=== PATIENT | female | born 1940 | race Caucasian/White ===

== ENCOUNTER → 2025-02-03 | Outpatient (REF) ==
[2025-02-03 09:26] LABS: HEMATOCRIT 34.7 % (36.0-47.0); HEMOGLOBIN 11.2 g/dl (12.0-15.5); MEAN CORPUSCULAR HEMOGLOBIN 29.9 pg (27.0-33.0); MEAN CORPUSCULAR HGB CONC 32.3 g/dl (32.0-36.5); MEAN CORPUSCULAR VOLUME 92.8 fl (80.0-96.0); PLATELET COUNT, AUTOMATED 278 10^3/uL (150-450); RED BLOOD COUNT 3.74 10^6/uL (4.00-5.40); WHITE BLOOD COUNT 5.7 10^3/uL (4.0-10.0)
[2025-02-03 09:50] LABS: CALCIUM LEVEL 9.7 MG/DL (8.3-10.6); CREATININE FOR GFR 2.19 MG/DL (0.55-1.30); GLOMERULAR FILTRATION RATE 22.8 (>32); POTASSIUM SERUM 4.6 MMOL/L (3.5-5.1)
== END ==
PROVIDERS: ATTEND Internal Medicine
DX: Z02.2 Encounter for examination for admission to residential institution (principal)

== ENCOUNTER → 2025-02-05 | Outpatient (REF) ==
[2025-02-05 08:12] LABS: CREATININE FOR GFR 1.94 MG/DL (0.55-1.30); GLOMERULAR FILTRATION RATE 26.2 (>32); POTASSIUM SERUM 4.6 MMOL/L (3.5-5.1)
== END ==
PROVIDERS: ATTEND Internal Medicine
DX: N18.9 Chronic kidney disease, unspecified (principal)

== ENCOUNTER → 2025-02-08 | Outpatient (REF) ==
[2025-02-08 10:38] LABS: CALCIUM LEVEL 10.2 MG/DL (8.3-10.6); CREATININE FOR GFR 2.55 MG/DL (0.55-1.30); GLOMERULAR FILTRATION RATE 19.1 (>32); POTASSIUM SERUM 4.2 MMOL/L (3.5-5.1)
== END ==
PROVIDERS: ATTEND Internal Medicine
DX: N18.9 Chronic kidney disease, unspecified (principal)

== ENCOUNTER → 2025-02-09 | Outpatient (REF) | payer BC, MEDICARE | PROVIDERS: ATTEND Physician Assistant | DX: R05.9 Cough, unspecified (principal); R91.8 Other nonspecific abnormal finding of lung field ==

== ENCOUNTER → 2025-02-10 | Outpatient (REF) ==
[2025-02-10 08:32] LABS: HEMATOCRIT 45.3 % (36.0-47.0); MEAN CORPUSCULAR HEMOGLOBIN 30.8 pg (27.0-33.0); MEAN CORPUSCULAR HGB CONC 33.1 g/dl (32.0-36.5); PLATELET COUNT, AUTOMATED 349 10^3/uL (150-450); RED BLOOD COUNT 4.87 10^6/uL (4.00-5.40); WHITE BLOOD COUNT 12.5 10^3/uL (4.0-10.0)
[2025-02-10 09:02] LABS: CALCIUM LEVEL 10.7 MG/DL (8.3-10.6); CREATININE FOR GFR 2.67 MG/DL (0.55-1.30); GLOMERULAR FILTRATION RATE 18.1 (>32); POTASSIUM SERUM 4.6 MMOL/L (3.5-5.1)
== END ==
PROVIDERS: ATTEND Internal Medicine
DX: Z02.2 Encounter for examination for admission to residential institution (principal); Z79.899 Other long term (current) drug therapy

== ENCOUNTER → 2025-02-11 | Outpatient (REF) ==
[2025-02-11 14:10] LABS: HEMATOCRIT 47.6 % (36.0-47.0); HEMOGLOBIN 15.3 g/dl (12.0-15.5); MEAN CORPUSCULAR HEMOGLOBIN 30.8 pg (27.0-33.0); MEAN CORPUSCULAR HGB CONC 32.1 g/dl (32.0-36.5); PLATELET COUNT, AUTOMATED 347 10^3/uL (150-450); RED BLOOD COUNT 4.96 10^6/uL (4.00-5.40); WHITE BLOOD COUNT 12.6 10^3/uL (4.0-10.0)
== END ==
PROVIDERS: ATTEND Internal Medicine
DX: D72.829 Elevated white blood cell count, unspecified (principal)

== ENCOUNTER → 2025-02-12 | Outpatient (REF) ==
[2025-02-12 07:43] LABS: HEMATOCRIT 43.4 % (36.0-47.0); HEMOGLOBIN 14.4 g/dl (12.0-15.5); MEAN CORPUSCULAR HEMOGLOBIN 30.3 pg (27.0-33.0); MEAN CORPUSCULAR HGB CONC 33.2 g/dl (32.0-36.5); MEAN CORPUSCULAR VOLUME 91.2 fl (80.0-96.0); PLATELET COUNT, AUTOMATED 313 10^3/uL (150-450); RED BLOOD COUNT 4.76 10^6/uL (4.00-5.40); WHITE BLOOD COUNT 10.7 10^3/uL (4.0-10.0)
[2025-02-12 08:28] LABS: CALCIUM LEVEL 9.6 MG/DL (8.3-10.6); CREATININE FOR GFR 3.38 MG/DL (0.55-1.30); POTASSIUM SERUM 5.1 MMOL/L (3.5-5.1)
== END ==
PROVIDERS: ATTEND Internal Medicine
DX: R41.0 Disorientation, unspecified (principal)